=== PATIENT | female | born 1975 | race Caucasian/White ===

== ENCOUNTER → 2021-09-29 | Outpatient (CLI) | payer BC, OTHER ==
[~2021-09-29] MED LIST: LOSARTAN-HCTZ1 EAC2 PO
== END ==
LOC: RAD 11:59
DX: M25.561 Pain in right knee (principal); M25.461 Effusion, right knee; M17.11 Unilateral primary osteoarthritis, right knee
CPT/HCPCS: 73562

== ENCOUNTER → 2021-10-22 | Outpatient (CLI) | payer BC, OTHER | LOC: KOH-I 12:49 | DX: M25.561 Pain in right knee (principal); S83.281A Other tear of lateral meniscus, current injury, right knee, initial encounter; M25.461 Effusion, right knee; M94.9 Disorder of cartilage, unspecified | CPT/HCPCS: 73721 ==